=== PATIENT | male | born 1945 | race Caucasian/White ===

== ENCOUNTER 2021-02-26 16:30 | Emergency (ER) | payer OTHER, SELFPAY ==
[2021-02-26 16:43] VITALS: BP 177/96; PULSE 74; RESP 18; TEMP 36.5; O2SAT 95; BMI 27.8
--- NOTE | 2021-02-26 16:58 | ECG_ITS ---
[facility] Test Date: 2021-02-26 Pat Name: Stan Cox Department: Room: Gender: Male Spout Liner: : 1945 Requested By: Bipin Gray Order Number: [id number] Eugene MD: Annie Rangel M.D. Measurements Intervals [place] Rate: 75 P: 68 HI: 196 QRS: -68 QRSD: 161 T: 78 QT: 402 QTc: 450 Interpretive Statements SINUS RHYTHM RIGHT BUNDLE BRANCH BLOCK [120+ ms QRS DURATION, UPRIGHT V1, 40+ ms S IN I/aVL/V4/V5/V6] LEFT ANTERIOR FASCICULAR BLOCK [QRS AXIS <= -45, QR IN I, RS IN II] Compared to ECG 11/19/2017 18:03:36 Left anterior fascicular block now present Sinus bradycardia no longer present Electronically Signed On 02-26-2021 19:58:58 TRACKWALKER by Annie Ranegl M.D. [id number]
--- NOTE | 2021-02-26 16:58 | XRR_ITS ---
PROCEDURE INFORMATION: Exam: XR Chest Exam date and time: 02/26/2021 4:58 PM Age: 76 years old Clinical indication: Other: Heart palpitations; Additional info: Light-headedness TECHNIQUE: Imaging protocol: XR of the chest. Views: 1 view. COMPARISON: CR Chest 1 [place] [id number] 11/19/2017 4:23 PM FINDINGS: Lungs: Unremarkable. No consolidation. Pleural spaces: Unremarkable. No pleural effusion. No pneumothorax. Heart/Mediastinum: Unremarkable. No cardiomegaly. Bones/joints: Unremarkable. XR/XR chest 1V portable [id number] IMPRESSION: No acute findings.
[2021-02-26] MEDS: sodium chloride 0.9% 500 ML IV (17:28)
[2021-02-26 17:39] LABS: Basophils % 0.5 %; Eosinophils # 0.2 10^3/uL (0.0-0.8); Eosinophils % 2.9 %; Hematocrit 44.2 % (42.0-52.0); Hemoglobin 14.9 g/dL (11.7-16.6); Lymphocytes # 1.2 10^3/uL (0.8-4.8); Lymphocytes % 22.3 %; Mean Corpuscular HGB Conc 33.7 g/dL (30.0-36.0); Mean Corpuscular Hemoglobin 31.6 pg (28.0-34.0); Mean Corpuscular Volume 93.6 fl (80-94); Mean Platelet Volume 9.2 fL (7.4-10.4); Monocytes # 0.5 10^3/uL (0.2-0.9); Monocytes % 8.6 %; Neutrophils # 3.58 10^3/uL (1.8-7.7); Neutrophils % 65.5 %; Nucleated Red Blood Cells % 0 %; Platelet Count 202 10^3/cmm (130-400); Red Blood Count 4.72 10^6/uL (4.1-5.3); Red Cell Distribution Width 12.7 % (12.1-15.1); White Blood Count 5.5 10^3/uL (4.0-10.0)
[2021-02-26 18:16] LABS: Troponin(5th) Baseline 10 ng/L (0-15)
[2021-02-26 18:21] LABS: Anion Gap 18.9 (5-19); Blood Urea Nitrogen 18 mg/dL (8-23); Calcium 8.9 mg/dL (8.5-10.5); Carbon Dioxide 25 mmol/L (22-29); Chloride 101 mmol/L (98-107); Glucose 90 mg/dL (65-115); Osmolality Calculated 293 mOsm/kg (285-295); Potassium 3.9 mmol/L (3.5-5.1); Sodium 141 mmol/L (136-145)
--- NOTE | 2021-02-26 18:48 | ED_ITS ---
HPI - General Adult General: Chief complaint: Arrhythmia/Palpitations Stated complaint: heart palpitations Time Seen by Provider: 02/26/21 16:58 History of Present Illness: HPI narrative: HPI: [76]yo patient w/ no known PMH presenting to the ED for light-headedness and palpitations lasting for 20 minutes which ocurred at 4pm. 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 Patient felt light-headedness and nauseaous but denied LOC today. No hx of seizures. Patient denies any prior hx of syncope in the past. No associated symptoms of chest pain, shortness of breath, palpitations or focal weakness right before the incident. No family hx of sudden cardiac or unexplained . Patient was previously followed by Dr. Angela and had a holter monitor that did not capture any activities. Last episode of palpitation and light-headedness happened 6 months ago. Onset: 4pmp Duration: one episode Location: work Severity: moderate Associated symptoms: Reports palpitations; Deny chest pain, dyspnea, nausea, rash or vomiting Review of Systems Const: Reports: other (+light-headedness); Denies: fever(s) or chills Eyes: Denies: change in vision ENMT: Denies: mouth pain Card: Reports: palpitations; Denies: chest pain Resp: Denies: dyspnea or non-productive cough GI: Denies: abdominal pain, nausea, vomiting or diarrhea : Denies: dysuria Musc: Denies: extremity pain Skin/Breast: Denies: rash or new lesions Neuro: Denies: weakness in extremities Psych: Reports: other (Normal mood) Jimmy/Lymph: Denies: easy bruising [facility] ED PFSH: Medical History Palpitation Family History Denies family history of CAD (coronary artery disease) Social History Smoking and tobacco status: never smoked Alcohol intake: never Substance/Drug Use: never Physical Exam Const: COMMON NORMALS: alert HENMT: COMMON NORMALS: atraumatic HEAD & SCALP: atraumatic MOUTH: moist mucous membranes not abnormal Eye: COMMON NORMALS: EOMs intact bilaterally and conjunctivae normal CONJUNCTIVA: Yes conjunctivae normal Neck/C-Spine: COMMON NORMALS: full ROM and supple Resp: COMMON NORMALS: normal respiratory effort and clear to auscultation bilaterally AUSCULTATION: clear to auscultation bilaterally Cardio: COMMON NORMALS: regular rate RATE: regular rate GI: COMMON NORMALS: Soft to palpation and non-tender PALPATION: Yes Soft to palpation Extremity: COMMON NORMALS: full ROM Neuro: SENSORIUM/ORIENTATION: Yes alert MOTOR EXAM: No Abnormal motor strength present and Other motor observations present (no focal motor deficits) OTHER: Mental status: A/Ox3 CN II-XII tested and intact. Sensation intact to sharp/dull differentiation in all extremities. Motor: Normal tone and bulk. No abnormal movements appreciated. No pronator drift. Strength tested and 5/5 in bilateral wrist flexion/extension, elbow flexion/extension, shoulder abduction, straight leg raise, knee flexion/extension, ankle dorsiflexion/plantarflexion. Patient ambulates with a steady gait. Coordination: Finger to nose and heel to george testing intact bilaterally. PSYCH: Cooperative mood and affect Psych: COMMON NORMALS: speech normal SPEECH: Yes normal speech MOOD & AFFECT: Yes euthymic mood Course Vital Signs: Vital signs: Vital Signs Temperature 97.7 F 02/26/21 16:43 Pulse Rate 74 02/26/21 16:43 Respiratory Rate 18 02/26/21 16:43 Blood Pressure 177/96 02/26/21 16:43 Pulse Oximetry 95 02/26/21 16:43 MDM - General Adult MDM Narrative: Medical decision making narrative: [76]yo patient w/ no known PMH presenting to the ED with for light-headedness and palpitatoins. No association with chest pain, dyspnea, palpitations, or focal neurological deficits. HDS Neuro intact. Fingerstick wnl. Given history, exam and workup, presentation not consistent with seizures given a short time course, no postictal state, no seizure activity. Low suspicion for acute neurologic catastrophes to include ICH given lack of trauma, risk factors for bleeding diathesis, or neurogenic causes of syncope. Low suspicion for vascular catastrophes to include PE, thoracic aortic dissection, AAA rupture. Presentation not consistent with acute life threatening arrhythmia, structural heart disease, electrical conduction abnormalities, or ACS. Workup: CBC, BMP, troponin x 2, magnesium, EKG, telemtry Intervention: IVF Serial reevaluation, telemetry, PO challenge Findings: EKG: No e/o STEMI. NSR, RBBB, No evidence of Brugada?s sign, delta wave, epsilon wave, significantly prolonged QTc, HOCM or malignant arrhythmia. [8:15pm] On reassessment, patient denies any syncope or near syncope episodes in the ER. Telemetry without any dysrhythmia. Patient has been able to tolerate PO and ambulate in the ER without issues. Patient denies any syncope or near syncope episodes in the ER. Telemetry without any dysrhythmia. Patient has been able to tolerate PO and ambulate in the ER without issues. Delta troponin <4. I performed shared decision-making with patient regarding admission versus discharge today, and patient prefers to be discharged. I ahve discussed given age and possible cardiac involvement, it is better to admitted. Upon hearing this, patient elects to go home and do the stress test on Wednesday and Wednesday. I explained the risks of leaving the hospital today including lethal arrythemia, OK, strokes and even . Patient verbalizes understanding of these discussed risk and elect for the alternative of following up earlier next week for evaluation by Cardiology. Patient verbalizes understanding to return for any worsening symptoms including chest pain, dyspnea, fatigue, arm pain/jaw pain/back pain or any new or concerning issues. Hemoglobin of 14.9. Patient is currently HDS, ambulated without any difficulties. I have given patient follow up with our human services case manager to be seen by our outpatient Cardiology for evaluation of light-headedness. Patient aware of a call from our human services case manager to schedule for appointment(s) and verbalizes understanding of the importance of following up. Disposition: Discharge. Patient is at baseline at this time. Return precautions expressed and understood in person. Advised follow up with a primary care provider or clinic physician in the next 24-48 hours. Given return instructions for any new or concerning symptoms including chest pain, focal neurological deficits, dyspnea, or any new or concerning findings. Lab Data: Labs: Lab Results 02/26/21 02/26/21 02/26/21 17:20 17:20 17:20 WBC 5.5 10^3/uL 10^3/ uL (4.0-10.0) RBC 4.72 10^6/uL 10^6 /uL (4.1-5.3) Hgb 14.9 g/dL g/dL (11.7-16.6) Hct 44.2 % % (42.0-52.0) MCV 93.6 fl fl (80-94) MCH 31.6 pg pg (28.0-34.0) MCHC 33.7 g/dL g/dL (30.0-36.0) RDW 12.7 % % (12.1-15.1) Plt Count 202 10^3/cmm 10^3 /cmm (130-400) MPV 9.2 fL fL (7.4-10.4) Neut % (Auto) 65.5 % % Lymph % (Auto) 22.3 % % [place] % (Auto) 8.6 % % Eos % (Auto) 2.9 % % Baso % (Auto) 0.5 % % Neut # (Auto) 3.58 10^3/uL 10^3 /uL (1.8-7.7) Lymph # (Auto) 1.2 10^3/uL 10^3/ uL (0.8-4.8) [place] # (Auto) 0.5 10^3/uL 10^3/ uL (0.2-0.9) Eos # (Auto) 0.2 10^3/uL 10^3/ uL (0.0-0.8) Baso # (Auto) 0.0 10^3/uL 10^3/ uL (0.0-0.1) Nucleated RBC % (a uto) 0 % % Nucleated RBCs # 0.0 /100WBC /100W BC Sodium 141 mmol/L mmol/L (136-145) Potassium 3.9 mmol/L mmol/L (3.5-5.1) Chloride 101 mmol/L mmol/L (98-107) Carbon Dioxide 25 mmol/L mmol/L (22-29) Anion Gap 18.9 (5-19) BUN 18 mg/dL mg/dL (8-23) Creatinine 0.8 mg/dL mg/dL (0.7-1.2) GFR Calculation Not Reportable Glucose 90 mg/dL mg/dL (65-115) Calculated Osmolal ity 293 mOsm/kg mOsm/ kg (285-295) Calcium 8.9 mg/dL mg/dL (8.5-10.5) Magnesium Troponin T Baselin e 10 ng/L ng/L (0-15) Troponin T 120 Min tony Delta Troponin T 02/26/21 02/26/21 19:45 19:45 WBC RBC Hgb Hct MCV MCH MCHC RDW Plt Count MPV Neut % (Auto) Lymph % (Auto) [place] % (Auto) Eos % (Auto) Baso % (Auto) Neut # (Auto) Lymph # (Auto) [place] # (Auto) Eos # (Auto) Baso # (Auto) Nucleated RBC % (a uto) Nucleated RBCs # Sodium Potassium Chloride Carbon Dioxide Anion Gap BUN Creatinine GFR Calculation Glucose Calculated Osmolal ity Calcium Magnesium 2.2 mg/dL mg/dL (1.7-2.3) Troponin T Baselin e Troponin T 120 Min tony 9.52 ng/L ng/L (0-15) Delta Troponin T -0.48 ABS# L ABS# (0-10) Imaging Data^: Other Imaging: Radiologist's impression: [address] [place] [id number] ReportSigned Patient: Frank Cox #: [id number]: 1945cct#:[id number]/Sex: 76 / MADM Date: 02/26/21Loc: [facility]/Bed:Attending Dr: Ordering Provider/Ordering MD: Bipin Gray MD Date of Service: 02/26/21 Procedure(s): XR chest 1V portable [id number] Accession Number(s): [id number] Report Number: [id number] PROCEDURE INFORMATION: Exam: XR Chest Exam date and time: 02/26/2021 4:58 PM Age: 76 years old Clinical indication: Other: Heart palpitations; Additional info: Light-headedness TECHNIQUE: Imaging protocol: XR of the chest. Views: 1 view. COMPARISON: CR Chest 1 [place] [id number] 11/19/2017 4:23 PM FINDINGS: Lungs: Unremarkable. No consolidation. Pleural spaces: Unremarkable. No pleural effusion. No pneumothorax. Heart/Mediastinum: Unremarkable. No cardiomegaly. Bones/joints: Unremarkable. XR/XR chest 1V portable [id number] IMPRESSION: No acute findings. Dictated By:Gerson Gabriel By:Gerson Gabriel DOSigned Date/Time:02/26/21 1719DD/ 57 Discharge Plan Discharge Patient Disposition: Home Clinical Impression: Light headedness Condition: Stable Discharge Orders: Discharge ED (Routine); Ordered 02/26/21 Ordered By: Bipin Gray Referrals: Jay Ruelas [Primary Care Provider] - Discharge Diet: Advance as tolerated Discharge Activity: Resume usual activity Patient Instructions: Heart Palpitations (ED) Activity Restrictions/Additional Instructions: Our human services case manager will have you follow-up with Cardiology in the next few days. You would be expected to have a phone call with our human services case manager who will put you on the schedule. Come back to the ER if you have any lightheadedness, chest pain, shortness breath, focal weakness, or any new complaints Coding Level of Care Code ED Business Editor for Lisa Fwd Exam Comprehensive
[2021-02-26 20:19] LABS: Troponin 5 2HR 9.52 ng/L (0-15)
[2021-02-26 20:20] LABS: Magnesium 2.2 mg/dL (1.7-2.3); Troponin 5 2HR Delta -0.48 ABS# (0-10)
[2021-02-26 20:47] VITALS: BP 168/96; PULSE 77; RESP 16; O2SAT 98
--- NOTE | 2021-02-28 12:01 | DCPLANNER ---
Addendum entered by Gracie Lubin 03/21/21 10:56: Patient had a follow up appointment scheduled for 03.20.21 with [facility] - patient did not attend appointment. Original Note: certified dietary manager had message to schedule a follow up appointment for patient with heart care. certified dietary manager called heart care, spoke with Clara Garcia, gave clinic patients information. A follow up appointment was scheduled for , March 20, 2021 at 1:[address] Angela. certified dietary manager called patient and gave patient the appointment information. Patient has [employer] insurance, telephonic case manager will send patients information to [place] with [employer] [facility] so that the authorization process can be started.
== END 2021-02-26 20:48 | disposition home or self-care (01) ==
PROVIDERS: Emergency Provider Emergency Medicine; PCP Internal Medicine
DX: R42 Dizziness and giddiness (principal)
CPT/HCPCS: 36415; 71045; 80048; 83735; 84484; 85025; 93005; 96360; 99283; J7040

== ENCOUNTER 2022-12-04 15:54 | Outpatient (CLI) | payer OTHER, SELFPAY ==
--- NOTE | 2022-12-04 15:58 | MR_ITS ---
WS: [id number] MRI LEFT KNEE HISTORY: LEFT KNEE PAIN COMPARISON: None. Anterior cruciate ligament: Abnormal signal throughout the ACL. High-grade but not complete tear invo lving the ACL. The distal anterior fiber bundles are still intact. Posterior cruciate ligament: Intact. Medial collateral ligament: Fluid on both sides of the MCL. MCL is partially displaced from the joint line by osteophyte. Posterior lateral corner structures: Intact. Medial menisci: Small caliber posterior horn. Tear involving the free edge and extending into the men iscal root. Anterior horn is subluxed from the joint line but intact. Lateral meniscus: Intact. Normal signal, size and shape. Extensor mechanism: Distal quadriceps tendon and patellar tendons are intact. Fluid and soft tissue: Moderate size suprapatellar joint effusion. There is a small amount of edema s urrounding the knee also. No Dixon's cyst. Osseous and articular structures: Patellofemoral compartment: Mild narrowing of the patellofemoral joint space. No marrow edema. Medial compartment: Moderate narrowing of the medial compartment. Complete loss of cartilage. Moderat e-sized marginal osteophytes. Mild subchondral cystic changes along the weightbearing surface of the femoral condyle and tibial plateau. Lateral compartment: Mild narrowing of the lateral compartment with mild chondromalacia. Small margin al osteophytes. There is a cystic mass containing loose bodies along the popliteus tendon. Numerous loose bodies with the largest measuring 2.0 x 1.1 cm. IMPRESSION: 1. 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 Complete loss of cartilage with joint spa ce narrowing and osteophytes and subchondral cystic changes. 2. Complex tear posterior horn medial meniscus. Meniscal tear involves the free edge and the meniscal root. 3. Abnormal signal throughout the ACL. Combination of partial tear involving the distal ACL and mucoi d degeneration. 4. MCL is displaced from the joint line by osteophyte formation. 5. Complex cystic mass with loose bodies along the popliteus tendon. Distended bursa or ganglion with in the differential. Largest loose body measures 2.0 x 1.1 cm.
== END 2022-12-04 15:55 | disposition home or self-care (01) ==
PROVIDERS: PCP Internal Medicine; Visit Provider Family Medicine
DX: M25.562 Pain in left knee (principal); M17.12 Unilateral primary osteoarthritis, left knee; S83.242A Other tear of medial meniscus, current injury, left knee, initial encounter; M23.42 Loose body in knee, left knee; X58.XXXA Exposure to other specified factors, initial encounter
CPT/HCPCS: 73721

== ENCOUNTER 2022-12-24 09:14 | Emergency (ER) | payer OTHER, SELFPAY ==
[2022-12-24 09:16] VITALS: BP 233/108; PULSE 65; RESP 18; TEMP 36.7; O2SAT 94; BMI 27.8
--- NOTE | 2022-12-24 09:19 | ECG_ITS ---
[facility] Test Date: 2022-12-24 Pat Name: Stan Cox Department: Room: Gender: Male Sole Conditioner: : 1945 Requested By: Davis Madrigal Order Number: [id number] Eugene MD: Max Hammer M.D. Measurements Intervals [place] Rate: 64 P: 34 [place]: 205 QRS: -49 QRSD: 159 T: 13 QT: 461 QTc: 479 Interpretive Statements SINUS RHYTHM RIGHT BUNDLE BRANCH BLOCK [120+ ms QRS DURATION, UPRIGHT V1, 40+ ms S IN I/aVL/V4/V5/V6] LEFT ANTERIOR FASCICULAR BLOCK [QRS AXIS <= -45, QR IN I, RS IN II] MODERATE VOLTAGE CRITERIA FOR LVH, CONSIDER NORMAL VARIANT [MEETS CRITERIA IN ONE OF: R(aVL), S(V1), R(V5), R(V5/V6)+S(V1)] Compared to ECG 02/26/2021 16:41:33 No significant changes Electronically Signed On 12-24-2022 11:12:26 GROUND OPERATIONS CREW MEMBER by Max Hammer M.D. [id number]
--- NOTE | 2022-12-24 09:59 | W.ED.GENADLT ---
HPI - General Adult General: Chief complaint: Ear Stated complaint: rt inner ear pain Time Seen by Provider: 12/24/22 09:26 Source: patient Mode of arrival: ambulatory History of Present Illness: 69-year-old male presents emergency room complaining of right ear pain. He has had it for the last week. He has not had any drainage from the ear no fever sweats or chills. He has a posterior auricular headache as well. No fever sweats chills no difficulty speaking or swallowing or with vision. Onset (ago): minute(s) PFS ED PFSH: Medical History (Updated 12/24/22 @ 10:03 by Davis Soto DO) Palpitation Family History Denies family history of CAD (coronary artery disease) Social History Smoking and tobacco/nicotine status: never used tobacco/nicotine Alcohol intake: never Substance/Drug Use: never Course Vital Signs: Vital signs: Vital Signs Temperature 98.0 F 12/24/22 09:16 Pulse Rate 66 12/24/22 10:00 Respiratory Rate 18 12/24/22 10:00 Blood Pressure 233/108 12/24/22 09:16 Pulse Oximetry 93 12/24/22 10:00 Oxygen Delivery Me thod Room Air 12/24/22 10:00 [facility] - General Adult Medical Decision Making Patient has right ear pain with pain radiating to the cheek and a little bit of decreased sensation on the cheek he has no other symptoms no facial motor loss of function he is able to open and close eyes without difficulty. This could be an early precursor to a Walker's palsy or just variant of facial nerve palsy he has no sign of an acute stroke. He localizes the pain behind the ear not to the face I do not believe this looks like a trigeminal neuralgia. He has no rash suggestive of zoster. We will start him on a course of steroids. Follow-up with primary care if not improving. Medical Records I reviewed the patient's medical records. Lab Data I reviewed the patient's lab results. 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 Condition: Stable Prescriptions: New prednisone 50 mg tablet 50 mg PO DAILY 7 Days Qty: 7 0RF No Action glucosamine-chondroitin 900 mg tablet 900 mg PO QAM multivitamin Tablet 1 tab PO DAILY Vitamin B-12 50 mcg Tablet 50 mcg PO QAM Vitamin D3 50 mcg (2,000 unit) Capsule 50 mcg PO QAM Fish Oil 1,000 mg (120 mg-180 mg) Capsule 1 cap PO QAM Oil Of Oregano 1 cap PO QAM Discharge Orders: Discharge ED (Routine); Ordered 12/24/22 Ordered By: Davis Soto Referrals: Gita Alfaro MD [Primary Care Provider] - Discharge Diet: Usual diet Discharge Activity: Increase activity as tolerated Patient Instructions: Opioid Safety, Pain Management Activity Restrictions/Additional Instructions: Thank you for choosing [facility] for your healthcare needs today. Please realize this is an emergency room and that we are providing you with a medical screening exam and this may not be complete and all inclusive of all the testing and or work up that you may need to determine your ailment or severity of your illness. It is very important that you follow up as instructed or that you return to the Emergency Department should you have concerns or if your condition changes or worsens in any way. You are given prednisone for a facial nerve irritation. This may be early sign of Walker's palsy. If your symptoms do not improve or worsen recheck with your primary care doctor. Coding Level of Care Code ED Casing Material Weigher for Lisa Gallego
[2022-12-24 10:00] VITALS: PULSE 66; RESP 18; O2SAT 93
--- NOTE | 2022-12-24 10:04 | PC.PHAR ---
PT WOULD GET MAINTENANCE MEDICATIONS THROUGH THE [place] EMERGENCY MEDS GO TO [facility]. PT, HOWEVER, DOES NOT TAKE ANY PRESCRIPTION MEDICATIONS CURRENTLY
== END 2022-12-24 10:14 | disposition home or self-care (01) ==
PROVIDERS: Emergency Provider Family Medicine; PCP Family Medicine
DX: G51.9 Disorder of facial nerve, unspecified (principal)
CPT/HCPCS: 93005; 99283